=== PATIENT | male | born 1965 | race Caucasian/White ===

== ENCOUNTER 2019-11-27 14:40 | Outpatient (CLI) | payer OTHER ==
[~2019-11-27 14:40] MED LIST: ATENOLOL50 MG PO; CRESTOR10 MG PO; DILTIAZEM ER180 M1 PO; HYDROCHLOROTHIA25 MG; KETO10TA2 PO; ORPH100T PO; TAMS0.4C; TRICOR145 MG PO
== END 2019-11-27 15:20 | disposition home or self-care (01) ==
LOC: OFIC 805 14:40
PROVIDERS: ATTEND Otolaryngology Otology & Neurotology
DX: H91.93 Unspecified hearing loss, bilateral (principal); R42 Dizziness and giddiness; J31.0 Chronic rhinitis; J01.30 Acute sphenoidal sinusitis, unspecified

== ENCOUNTER → 2020-02-29 | Outpatient (CLI) | payer OTHER | END | disposition home or self-care (01) | LOC: OFIC 805 13:38 | PROVIDERS: ATTEND Otolaryngology Otology & Neurotology | DX: H69.83 Other specified disorders of Eustachian tube, bilateral (principal); J31.0 Chronic rhinitis; K21.9 Gastro-esophageal reflux disease without esophagitis; J01.30 Acute sphenoidal sinusitis, unspecified ==

== ENCOUNTER 2020-04-04 22:59 | Emergency (ER) | payer OTHER ==
[~2020-04-04] VITALS: Ht 172.7 cm; Wt 82.6 kg
== END 2020-04-05 04:47 | disposition home or self-care (01) ==
LOC: ER 22:59
DX: J32.1 Chronic frontal sinusitis (principal)

== ENCOUNTER 2020-04-06 12:33 | Outpatient (CLI) | payer OTHER | END 2020-04-06 13:09 | disposition home or self-care (01) | LOC: OFIC 805 12:33 | PROVIDERS: ATTEND Otolaryngology Otology & Neurotology | DX: K21.9 Gastro-esophageal reflux disease without esophagitis (principal); H69.83 Other specified disorders of Eustachian tube, bilateral; H91.8X3 Other specified hearing loss, bilateral; J31.0 Chronic rhinitis ==

== ENCOUNTER 2023-10-03 06:39 | Emergency (ER) | payer OTHER ==
[~2023-10-03] VITALS: Ht 172.7 cm; Wt 83.9 kg
[2023-10-03] MEDS ORDERED: TOPROL XL100 M1 (07:05)
[2023-10-03] MEDS ORDERED: ISORDIL TITRADOS5 MG PO (07:06)
[2023-10-03] MEDS ORDERED: ADULT LOW DOSE81 M1 (07:06)
[2023-10-03] MEDS ORDERED: HYOSCYAMINE SULFATE 0.125 MG TAB.SUBL SL ONE (08:15)
[2023-10-03 09:50] LABS: PH,URINE 6.5 (5.0-8.0); URINE APPEARANCE Clear; URINE BILIRRUBIN Negative (NEGATIVE); URINE BLOOD Negative; URINE COLOR Yellow; URINE GLUCOSE Negative (NEGATIVE); URINE KETONE Negative (NEGATIVE); URINE LEUKOCYTE Negative; URINE NITRATE Negative; URINE PROTEIN Negative (NEGATIVE); URINE UROBILINOGEN 0.2 E.U./dl
[2023-10-03 09:53] LABS: URINE RBC 10.8 uL (0.0-20.8); URINE WBC 4.9 uL (0.0-23.2)
[2023-10-03 10:03] LABS: URINE BACTERIA 2.5 uL (0.0-1933); URINE EPITHELIAL CELLS 1.2 uL (0.0-38.8)
[2023-10-03 10:12] LABS: HEMATOCRIT 43.5 % (39.0-48.0); HEMOGLOBIN 14.5 g/dL (13-16.00); MEAN CORPUSCULAR HGB CONC 33.4 g/dl (32.0-36.0); PLATELET COUNT 285 K/uL (150-450); RED BLOOD COUNT 4.99 M/uL (4.00-6.00)
[2023-10-03 10:35] LABS: PARTIAL THROMBOPLASTIN TIME 26.3 SECONDS (22.0-34.0)
[2023-10-03 10:52] LABS: PROTHROMBIN TIME 10.5 SECONDS (9.0-11.5)
[2023-10-03 11:16] LABS: CALCIUM 9.3 mg/dL (8.5-10.1); CREATININE SERUM 0.76 mg/dL (0.70-1.30); GFR 104.62; POTASSIUM 4.56 mEq/L (3.5-5.1)
== END 2023-10-03 12:58 | disposition home or self-care (01) ==
LOC: ER 06:40
DX: K59.01 Slow transit constipation (principal); Z88.8 Allergy status to other drugs, medicaments and biological substances

== ENCOUNTER 2024-07-20 19:11 | Emergency (ER) | payer OTHER ==
[~2024-07-20] VITALS: Ht 167.6 cm; Wt 86.2 kg
[~2024-07-20 19:11] MED LIST changes: +ADULT LOW DOSE81 M1; +ISORDIL TITRADOS5 MG PO; +TOPROL XL100 M1
[2024-07-20] MEDS ORDERED: LOSARTAN-HCTZ1 EAC2 (19:27)
[2024-07-20] MEDS ORDERED: METOCLOPRAMIDE HCL 5 MG/ML VIAL ONE (20:03)
[2024-07-20] MEDS ORDERED: FAMOTIDINE/PF 20 MG/2 ML VIAL ONE (20:03)
[2024-07-20] MEDS ORDERED: KETOROLAC TROMETHAMINE 30 MG VIAL ONE (20:03)
[2024-07-20] MEDS ORDERED: FAMOtidine 10 MG/ML (4ML VIAL) IV PUSH ONE (20:15)
[2024-07-20] MEDS ORDERED: 0.9 % SODIUM CHLORIDE 1,000 ML IV SCH (20:15)
[2024-07-20] MEDS ORDERED: METOCLOPRAMIDE HCL 10 MG in DEXTROSE 5 % IN WATER 50 ML IV ONE (20:15)
[2024-07-20] MEDS ORDERED: KETOROLAC TROMETHAMINE 30 MG VIAL IV ONE (20:15)
[2024-07-20 20:46] LABS: BASO % 0.3 % (0.1-1.2); EOS % 1.1 % (0.7-7.0); HEMATOCRIT 39.6 % (40.1-51.0); LYMPH # 2.18 (1.18-3.74); LYMPH % 24.2 % (19.3-53.1); MEAN CORPUSCULAR HEMOGLOBIN 27.8 pg (25.6-32.2); MONO # 0.78 (0.24-0.82); MONO % 8.7 % (4.7-12.5); NEUT # 5.91 (1.56-6.13); NEUT % 65.6 % (34.0-71.1); PLATELET COUNT 311 K/uL (163-369); RED BLOOD COUNT 4.68 M/uL (4.63-6.08); RED CELL DISTRIBUTION WIDTH 12.5 % (11.6-14.4)
[2024-07-20 20:51] LABS: ALBUMIN 3.6 gm/dL (3.4-5.0); BILIRUBIN TOTAL 0.84 mg/dL (0.3-1.2); BILIRUBIN,CONJUGATED 0.35 mg/dL (0.0-0.2); BILIRUBIN,UNCONJUGATED 0.49 mg/dL (0.0-0.6); CREATININE SERUM 0.87 mg/dL (0.70-1.30); GFR 89.21; GLOBULINA 3.5 G/DL (2.4-3.5); POTASSIUM 3.64 mEq/L (3.5-5.1); TOTAL PROTEIN 7.1 gm/dL (6.4-8.2)
[2024-07-20] MEDS ORDERED: OMEPRAZOLE40 MG PO (21:36)
[2024-07-20] MEDS ORDERED: CARAFATE1 GM PO (21:36)
== END 2024-07-20 21:44 | disposition home or self-care (01) ==
LOC: ER 19:11
PROVIDERS: General Practice
DX: K29.70 Gastritis, unspecified, without bleeding (principal); Z88.8 Allergy status to other drugs, medicaments and biological substances

== ENCOUNTER 2024-08-11 01:29 | Inpatient (IN) | payer OTHER ==
[~2024-08-11] VITALS: Ht 172.7 cm; Wt 87.1 kg
[~2024-08-11 01:29] MED LIST changes: +CARAFATE1 GM PO; +LOSARTAN-HCTZ1 EAC2; +OMEPRAZOLE40 MG PO
[2024-08-11] MEDS ORDERED: FAMOTIDINE20 MG PO (02:06)
[2024-08-11] MEDS ORDERED: EZETIMIBE10 MG PO (02:06)
[2024-08-11] MEDS ORDERED: 0.9 % SODIUM CHLORIDE 1,000 ML IV STA (02:59)
[2024-08-11] MEDS ORDERED: HYOSCYAMINE SULFATE 0.125 MG TAB.SUBL SL ONE (03:00)
[2024-08-11] MEDS ORDERED: MORPHINE SULFATE 4 MG/ML VIAL IV STA (03:00)
[2024-08-11] MEDS ORDERED: HYOSCYAMINE SULFATE 0.125 MG TAB.SUBL ONE (03:05)
[2024-08-11 03:43] LABS: BASO % 0.3 % (0.1-1.2); EOS # 0.24 (0.04-0.54); EOS % 2.4 % (0.7-7.0); HEMATOCRIT 40.8 % (40.1-51.0); LYMPH % 17.9 % (19.3-53.1); MEAN CORPUSCULAR HEMOGLOBIN 27.8 pg (25.6-32.2); MONO # 0.82 (0.24-0.82); MONO % 8.2 % (4.7-12.5); NEUT # 7.12 (1.56-6.13); NEUT % 70.9 % (34.0-71.1); PLATELET COUNT 273 K/uL (163-369); RED BLOOD COUNT 4.79 M/uL (4.63-6.08); RED CELL DISTRIBUTION WIDTH 12.5 % (11.6-14.4)
[2024-08-11 03:45] LABS: HEMOGLOBIN 13.3 g/dL (13.7-17.5)
[2024-08-11 04:28] LABS: ALBUMIN 3.5 gm/dL (3.4-5.0); BILIRUBIN TOTAL 0.73 mg/dL (0.3-1.2); CALCIUM 9.1 mg/dL (8.5-10.1); CREATININE SERUM 0.94 mg/dL (0.70-1.30); GFR 81.59; GLOBULINA 3.3 G/DL (2.4-3.5); POTASSIUM 4.01 mEq/L (3.5-5.1); TOTAL PROTEIN 6.8 gm/dL (6.4-8.2)
[2024-08-11 04:54] LABS: INR 0.99; PARTIAL THROMBOPLASTIN TIME 23.6 SECONDS (22.0-34.0); PROTHROMBIN TIME 10.8 SECONDS (9.0-11.5)
[2024-08-11] MEDS ORDERED: METOPROLOL SUCCINATE 100 MG TAB.SR.24H PO SCH (17:37)
[2024-08-11] MEDS ORDERED: TAMSULOSIN HCL 0.4 MG CAP PO SCH (17:37)
[2024-08-11] MEDS ORDERED: LOSARTAN/HYDROCHLOROTHIAZIDE 1 UDTAB TABLET PO SCH (17:37)
[2024-08-11] MEDS ORDERED: FAMOTIDINE/PF 20 MG in 0.9 % SODIUM CHLORIDE 8 ML IV PUSH SCH (17:40)
[2024-08-11] MEDS ORDERED: 0.9 % SODIUM CHLORIDE 1,000 ML IV SCH (17:45)
[2024-08-11] MEDS ORDERED: ACETAMINOPHEN 500 MG GEL..CAP PO PRN (17:45)
[2024-08-11] MEDS ORDERED: MORPHINE SULFATE 4 MG/ML CARTRIDGE IV PRN (17:45)
[2024-08-11] MEDS ORDERED: PIPERACILLIN/TAZOBACTAM SODIUM 3.375 GM in 0.9 % SODIUM CHLORIDE 100 ML IV SCH (18:00)
[2024-08-11 20:26] LABS: URINE APPEARANCE Clear; URINE BILIRRUBIN Negative (NEGATIVE); URINE BLOOD Negative; URINE COLOR Yellow; URINE GLUCOSE Negative (NEGATIVE); URINE KETONE Negative (NEGATIVE); URINE LEUKOCYTE Negative; URINE NITRATE Negative; URINE PROTEIN Negative (NEGATIVE)
[2024-08-11 20:30] LABS: URINE BACTERIA 4.8 uL (0.0-1933); URINE RBC 16.2 uL (0.0-20.8); URINE WBC 6.2 uL (0.0-23.2)
[2024-08-11 20:38] LABS: URINE EPITHELIAL CELLS 1.2 uL (0.0-38.8)
[2024-08-12 03:00] VITALS: BP 109/66; O2SAT 96
[2024-08-12 09:33] VITALS: BP 118/62; O2SAT 99
[2024-08-12] MEDS ORDERED: BUPIVACAINE HCL/MPF 0.5% 30ML VIAL ONE (16:18)
[2024-08-12] MEDS ORDERED: LIDOCAINE HCL 1%/EPINEPHRINE 20ML VIAL IJ ONE (16:19)
[2024-08-12] MEDS ORDERED: MORPHINE SULFATE 4 MG/ML VIAL IV ONE (19:55)
[2024-08-12] MEDS ORDERED: HYDROGEN PEROXIDE 473 ML BOTTLE TOP ONE (21:30)
[2024-08-12 22:02] VITALS: BP 132/72; O2SAT 94
[2024-08-13 02:30] VITALS: BP 116/68; O2SAT 94
[2024-08-13 05:30] LABS: HEMATOCRIT 41.7 % (40.1-51.0); HEMOGLOBIN 13.8 g/dL (13.7-17.5); LYMPH # 0.52 (1.18-3.74); LYMPH % 6.3 % (19.3-53.1); MONO # 0.25 (0.24-0.82); NEUT # 7.41 (1.56-6.13); NEUT % 90.3 % (34.0-71.1); PLATELET COUNT 284 K/uL (163-369); RED BLOOD COUNT 4.92 M/uL (4.63-6.08); RED CELL DISTRIBUTION WIDTH 12.3 % (11.6-14.4)
[2024-08-13 06:00] LABS: CALCIUM 8.5 mg/dL (8.5-10.1); CREATININE SERUM 0.95 mg/dL (0.70-1.30); GFR 80.6; POTASSIUM 4.6 mEq/L (3.5-5.1)
[2024-08-13] MEDS ORDERED: SIMETHICONE 125 MG CAPSULE PO SCH (09:00)
[2024-08-13] MEDS ORDERED: LACTOBACILLUS ACIDOPHILUS 1 CAP CAP PO SCH (09:00)
[2024-08-13] MEDS ORDERED: SUCRALFATE 1 G TABLET PO SCH (09:00)
[2024-08-13 09:15] VITALS: BP 97/57
[2024-08-13 12:45] VITALS: BP 111/62
[2024-08-13] MEDS ORDERED: FINASTERIDE 5 MG TABLET PO SCH (17:00)
[2024-08-13 18:06] VITALS: BP 106/56; O2SAT 97
[2024-08-14 03:02] VITALS: BP 107/55; O2SAT 93
[2024-08-14 08:47] VITALS: BP 124/63; O2SAT 95
[2024-08-14 17:32] VITALS: BP 142/73; O2SAT 96
[2024-08-15 02:28] VITALS: BP 114/74; O2SAT 96
[2024-08-15 09:20] VITALS: BP 138/78; O2SAT 96
[2024-08-15] MEDS ORDERED: TAMS0.4C PO ×2 (10:44)
[2024-08-15] MEDS ORDERED: BACTRIM DS TAB1 EACH PO (19:28)
[2024-08-15] MEDS ORDERED: PEPCID AC20 MG PO (19:28)
== END 2024-08-15 10:56 | disposition home or self-care (01) | DRG 419 ==
LOC: ER 01:29 → MEDJ 17:46
PROVIDERS: General Practice; Surgery; ADMIT Internal Medicine; ATTEND Internal Medicine
PROC: BF532ZZ Other Imaging of Gallbladder and Bile Ducts using Fluorescing Agent (ICD-10-PCS; 2024-08-12)
PROC: 0FT44ZZ Resection of Gallbladder, Percutaneous Endoscopic Approach (ICD-10-PCS; principal; 2024-08-12 17:45)
DX: K80.00 Calculus of gallbladder with acute cholecystitis without obstruction (principal)

== ENCOUNTER 2024-08-15 17:32 | Emergency (ER) | payer OTHER ==
[~2024-08-15] VITALS: Ht 172.7 cm; Wt 87.1 kg
[~2024-08-15 17:32] MED LIST changes: +EZETIMIBE10 MG PO; +FAMOTIDINE20 MG PO; +TAMS0.4C PO
[2024-08-15 18:37] LABS: BASO % 0.4 % (0.1-1.2); EOS % 4.2 % (0.7-7.0); HEMOGLOBIN 11.8 g/dL (13.7-17.5); LYMPH # 1.63 (1.18-3.74); LYMPH % 22.8 % (19.3-53.1); MONO # 0.74 (0.24-0.82); MONO % 10.4 % (4.7-12.5); NEUT # 4.41 (1.56-6.13); NEUT % 61.8 % (34.0-71.1); PH,URINE 7.5 (5.0-8.0); PLATELET COUNT 279 K/uL (163-369); RED BLOOD COUNT 4.22 M/uL (4.63-6.08); RED CELL DISTRIBUTION WIDTH 12.8 % (11.6-14.4); URINE APPEARANCE Clear; URINE BILIRRUBIN Negative (NEGATIVE); URINE BLOOD Large; URINE COLOR Yellow; URINE GLUCOSE Negative (NEGATIVE); URINE KETONE Negative (NEGATIVE); URINE LEUKOCYTE Trace; URINE NITRATE Negative; URINE PROTEIN Negative (NEGATIVE)
[2024-08-15 18:41] LABS: URINE BACTERIA 6.1 uL (0.0-1933); URINE EPITHELIAL CELLS 2.6 uL (0.0-38.8); URINE RBC 236.8 uL (0.0-20.8); URINE WBC 12.3 uL (0.0-23.2)
[2024-08-15 19:02] LABS: ALBUMIN 3.2 gm/dL (3.4-5.0); BILIRUBIN TOTAL 0.75 mg/dL (0.3-1.2); CALCIUM 9.2 mg/dL (8.5-10.1); CREATININE SERUM 0.82 mg/dL (0.70-1.30); GFR 95.51; GLOBULINA 3.5 G/DL (2.4-3.5); POTASSIUM 3.6 mEq/L (3.5-5.1); TOTAL PROTEIN 6.7 gm/dL (6.4-8.2)
[2024-08-15 19:20] LABS: TYPE CELLS SQUAMOUS; URINE CAST 0.14 uL (0.0-1.40)
[2024-08-15] MEDS ORDERED: BACTRIM DS TAB1 EACH PO (19:28)
[2024-08-15] MEDS ORDERED: PEPCID AC20 MG PO (19:28)
== END 2024-08-15 20:08 | disposition home or self-care (01) ==
LOC: ER 17:32
PROVIDERS: General Practice
DX: N40.1 Benign prostatic hyperplasia with lower urinary tract symptoms (principal); R33.8 Other retention of urine; Z88.8 Allergy status to other drugs, medicaments and biological substances; I10 Essential (primary) hypertension